=== PATIENT | female | born 1970 | race African-American/Black ===

== ENCOUNTER 2024-04-16 11:35 | Emergency (ER) | payer OTHER ==
[~2024-04-16] VITALS: Ht 160 cm; Wt 50.0 kg
[2024-04-16 11:43] VITALS: O2SAT 100
[2024-04-16 12:03] VITALS: BP 119/71; PULSE 69; RESP 18; TEMP 98.3; O2SAT 99
[2024-04-16 13:03] LABS: BASOPHILS % 0.5 % (0.0-2.0); EOSINOPHILS % 1.3 % (0.0-5.0); HEMATOCRIT. 39.4 % (36.0-48.0); HEMOGLOBIN. 13.7 g/dL (12.0-16.0); LYMPHOCYTES % 30.4 % (20.0-50.0); MEAN CORPUSCULAR HGB CONC 34.7 g/dL (31.0-37.0); MEAN CORPUSCULAR VOLUME 92.1 fL (81.0-99.0); MEAN PLATELET VOLUME 8.1 fl (7.4-10.4); MONOCYTES % 8.2 % (2.0-8.0); NEUTROPHILS % 59.6 % (40.0-76.0); PLATELET 216 x1000/uL (130-400); RED BLOOD CELL COUNT 4.28 mill/uL (4.2-5.4); RED CELL DISTRIBUTION WIDTH 12.6 % (11.6-14.6); WHITE BLOOD COUNT 6.6 x1000/uL (4.5-11.0)
[2024-04-16 13:14] LABS: CALCIUM 9.1 mg/dL (8.7-10.4); CHLORIDE 107 mEq/L (98-107); POTASSIUM 4.1 mEq/L (3.5-5.1); SODIUM 138 mEq/L (136-145)
[2024-04-16 13:15] LABS: CARBON DIOXIDE 29 mEq/L (21-32)
[2024-04-16 13:20] LABS: CREATININE 0.6 mg/dL (0.6-1.0); GLUCOSE 103 mg/dL (70-105); UREA NITROGEN BLOOD 12 mg/dL (9-23)
[2024-04-16 14:07] LABS: TROPONIN I HIGH SENSITIVITY < 4 ng/L (3.0-34)
== END 2024-04-16 13:07 | disposition left against medical advice (07) ==
LOC: ER 12:56
DX: R42 Dizziness and giddiness (principal)
CPT/HCPCS: 36415; 80048; 82962; 84484; 85025; 93005; 99284